=== PATIENT | male | born 1995 | race Hispanic/Latino ===

== ENCOUNTER 2021-02-19 13:08 | Emergency (ER) | payer OTHER ==
[~2021-02-19] VITALS: Ht 172.7 cm; Wt 84.5 kg
[~2021-02-19 13:08] MED LIST: CYCL-707 PO; MELO15TA28 PO; tps cream TOP
--- NOTE | 2021-02-19 14:49 | REP ---
INDICATION: central chest pain COMPARISON: None. TECHNIQUE: PA/Lateral FINDINGS: Lungs: Clear, no infiltrate. Heart: Normal in size. Mediastinum: Mediastinal silhouette unremarkable. Pleural angles: Unremarkable.. Bones and soft tissues: Unremarkable. IMPRESSION: No acute pulmonary disease. <Electronically signed by Al Watson > 02/19/21 [id number]
[2021-02-19] MEDS ORDERED: NAPR-837 PO (15:04)
[2021-02-19 15:22] VITALS: BP 114/68
--- NOTE | 2021-02-19 19:10 | ECGEPIP ---
[facility] - ED Test Date: 2021-02-19 Pat Name: LUIS HOUSE Department: Room: - Gender: Male Mailroom Messenger: BERHANE : 1995 Requested By: AKASH CABRAL PA-C. Order Number: [id number] Reading MD: Anita Trinh Measurements Intervals [place] Rate: 68 P: 43 LA: 148 QRS: 62 QRSD: 90 T: 35 QT: 380 QTc: 404 Interpretive Statements Normal sinus rhythm No prior Electronically Signed on 02-19-2021 19:10:24 EDT by Anita Trinh
== END 2021-02-19 15:24 | disposition home or self-care (01) ==
LOC: M ED 13:08
DX: M94.0 Chondrocostal junction syndrome [Tietze] (principal)